=== PATIENT | female | born 1960 | race Caucasian/White ===

== ENCOUNTER 2016-12-15 12:55 | Emergency (ER) | payer OTHER ==
--- NOTE | 2016-12-17 11:08 | ER ---
ADMIT: 12/15/2016 RM/LOC: ER [facility] MR#: [id number] [address] [id number] [address] [place] [address] Emergency Room Report SEX: F AGE: 55 : 1960 DATE: 12/15/2016 ADDENDUM: This 55-year-old white female coming in with essentially right flank pain. CT scan was negative. She has no stone. There is no rash on there. She has pain on this right side. She has had it for several days. She had been seen in [place] as well for this. CBC and chemistry were negative. Urine does appear to be infected, it will be cultured up. At this time, we are going to call her urinary tract infection with flank pain. I am going to put her on Cipro 500 b.i.d. x10 days and then I gave her 20 Bruin 5, 1-2 p.o. q.6 p.r.n. pain. She will be followed up by city call. CONDITION ON DISCHARGE: Fair. Carlos Castro MD/ leandro JOB #: [id number] CC: Carlos Castro MD, Attending Physician
== END 2016-12-15 16:20 | disposition home or self-care (01) ==
LOC: ER 12:55
DX: N30.00 Acute cystitis without hematuria (principal); E78.00 Pure hypercholesterolemia, unspecified; I10 Essential (primary) hypertension